=== PATIENT | female | born 1970 | race Caucasian/White ===

== ENCOUNTER 2016-09-27 09:45 | Emergency (ER) | payer BC ==
[~2016-09-27] VITALS: Ht 157.5 cm; Wt 65.8 kg
[~2016-09-27 09:45] MED LIST: ASPI81TA2 PO
[2016-09-27] MEDS ORDERED: IBUPROFEN 600 MG TABLET PO ONE ×2 (10:53→11:00)
[2016-09-27] MEDS ORDERED: DIAZEPAM 10 MG TABLET ONE (10:53)
[2016-09-27] MEDS ORDERED: DIAZEPAM 5 MG TABLET ONE (10:53)
[2016-09-27] MEDS ORDERED: DIAZEPAM 10 MG TABLET PO ONE (11:00)
[2016-09-27 12:38] VITALS: BP 118/71
== END 2016-09-27 12:38 | disposition home or self-care (01) ==
LOC: ER 09:52
DX: M54.2 Cervicalgia (principal); Z79.82 Long term (current) use of aspirin
CPT/HCPCS: 72050-TC; A4606; L0172; Z7610